=== PATIENT | female | born 1945 | race Caucasian/White ===

== ENCOUNTER → 2017-03-31 | Outpatient (CLI) | payer OTHER, MEDICARE | LOC: FIMAGING 09:21 | PROVIDERS: ATTEND Physician Assistant | DX: M41.9 Scoliosis, unspecified (principal); Z98.1 Arthrodesis status ==

== ENCOUNTER → 2017-05-02 | Outpatient (CLI) | payer OTHER, MEDICARE | LOC: FIMAGING 12:39 | PROVIDERS: ATTEND Physician Assistant Surgical | DX: Z13.820 Encounter for screening for osteoporosis (principal); M81.0 Age-related osteoporosis without current pathological fracture; M51.17 Intervertebral disc disorders with radiculopathy, lumbosacral region; M54.16 Radiculopathy, lumbar region ==

== ENCOUNTER → 2017-10-10 | Outpatient (CLI) | payer OTHER, MEDICARE | LOC: BHFA 10:00 | PROVIDERS: ATTEND Internal Medicine Cardiovascular Disease | DX: I51.7 Cardiomegaly (principal) ==

== ENCOUNTER 2018-06-17 02:39 | Inpatient (IN) | payer OTHER, MEDICARE ==
[2018-06-17] MEDS ORDERED: NS 1,000 ML IV ONE ×2 (02:45→06:52)
[2018-06-17] MEDS ORDERED: METOCLOPRAMIDE 10 MG/2 ML VIAL IVP ONE (02:50)
[2018-06-17 02:58] LABS: PLATELET COUNT 235 10^3/uL (150-400)
[2018-06-17] MEDS ORDERED: IOPAMIDOL (ISOVUE-300) 100 ML BTL ONE (03:00)
[2018-06-17] MEDS ORDERED: LORazepam 2 MG/ML INJ IVP ONE (03:04)
--- NOTE | 2018-06-17 03:24 | EDPHY ---
H & P Stated Complaint: abd pain Time Seen by Provider: 06/17/18 02:44 HPI/ROS: HPI The patient presents with nausea, vomiting, abdominal pain which has been present for the last 2 days and getting progressively worse. The patient is brought in by ambulance from her home in [place]. She does receive Zofran 8 mg 0 DT. Her symptoms have continued. She reports a dull lower abdominal pain which started slowly. She has not had a bowel movement in 2 days. She is vomiting every 30 min. She does have a history of constipation, however this seems worse.. REVIEW OF SYSTEMS 10 systems were reviewed and negative with the exception of the elements mentioned in the history of present illness. PMHx: Status post cholecystectomy, prior orthopedic surgeries Soc Hx: Lives at home independently with her PHYSICAL General Appearance: Alert, no distress Eyes: Pupils equal and round no pallor or injection ENT, Mouth: Mucous membranes moist Respiratory: There are no retractions, lungs are clear to auscultation Cardiovascular: Regular rate and rhythm Gastrointestinal: Abdomen is distended, bowel sounds present, tender in both lower quadrants without rebound or guarding Neurological: A&O, moves all extremities Skin: Warm and dry, no rashes Musculoskeletal: Neck is supple non tender Extremities: symmetrical, full range of motion Psychiatric: Patient is oriented X 3, there is no agitation Source: Patient Exam Limitations: No limitations - Personal History Current Tetanus Diphtheria and Acellular Pertussis (TDAP): Yes - Medical/Surgical History Hx Asthma: No Hx Chronic Respiratory Disease: No Hx Diabetes: No Hx Cardiac Disease: No Hx Renal Disease: No Hx Cirrhosis: No Hx Alcoholism: No Hx HIV/AIDS: No Hx Splenectomy or Spleen Trauma: No Other PMH: spinal fusion. ankle fusion. gallbladder. tka bilat - Social History Smoking Status: Never smoked Constitutional: Initial Vital Signs Temperature (C) 36.5 C 06/17/18 02:43 Heart Rate 102 H 06/17/18 02:43 Respiratory Rate 18 06/17/18 02:43 Blood Pressure 160/105 H 06/17/18 02:43 O2 Sat (%) 92 06/17/18 02:43 O2 Delivery Mode Room Air O2 (L/minute) 2 Allergies/Adverse Reactions: Sulfa (Sulfonamide Antibiotics) Allergy (Severe, Verified 06/17/18 02:43) Hives morphine [Morphine] Allergy (Intermediate, Verified 06/17/18 02:43) Other-Enter Comments hydromorphone HCl [From Dilaudid] Allergy (Verified 06/17/18 02:43) Home Medications: Medication Instructions Recorded Ascorbic Acid [Vitamin C 500 mg 1,000 mg PO DAILY 03/03/14 (*)] Cholecalciferol Vit D3 [Vitamin D3 1,000 units PO DAILY 03/03/14 (*)] Herbals/Supplements -Info Only 1 ea PO DAILY 03/03/14 [place]-3 Fatty Acids [Fish Oil 1000 1,000 mg PO DAILY 03/03/14 mg (*)] Omeprazole [Prilosec 20 mg] 40 mg PO DAILY 03/03/14 Rizatriptan Benzoate [Maxalt 10mg] 10 mg PO ONETIMEPRN PRN 03/03/14 Sertraline HCl [Zoloft 100mg (*)] 50 mg PO DAILY 03/03/14 HYDROcodone/APAP 10/325 [[place] 1 - 2 tab PO Q6 PRN #0 tab 03/12/14 10/325 (*)] oxyCODONE CR [Oxycontin] 10 mg PO TID #0 tab 03/12/14 DULoxetine [Cymbalta 30 MG (*)] 30 mg PO DAILY 11/05/15 Diclofenac Sodium 1% [Voltaren Gel 1 brittaney TP DAILY 11/05/15 (*)] Diclofenac Sodium [Voltaren 75 MG 75 mg PO DAILY 11/05/15 (*)] Ferrous Sulfate [Ferrous Sulf 325 325 mg PO DAILY 11/05/15 MG (*)] Pramipexole Di-HCl [Mirapex] 1 mg PO HS 11/05/15 morphINE SR [Ms Contin/Oramorph 15 15 mg PO BID PRN 11/05/15 mg (*)] Meclizine HCl [Meclizine HCl 25 mg 25 mg PO BID PRN #20 tab 11/06/15 (RX,OTC)] Ondansetron Odt [Zofran Odt 4 mg 4 mg PO Q4 PRN #10 tab 06/17/18 (*)] Medical Decision Making - Diagnostics Imaging Results: CT abdomen pelvis with IV contrast demonstrates moderately distended stomach, multiple mild to moderately distended small bowel loops suggestive of ileus, underlying mild gastroenteritis may be present, there is no evidence of small- bowel obstruction, interpreted by direct Radiology. Differential Diagnosis: This is a 73-year-old female status post cholecystectomy with history of constipation who presents from home brought in by ambulance with progressive lower abdominal pain associated with nausea and vomiting. Here, she is tender in her lower quadrants and appears distended. Differential diagnosis includes constipation, small-bowel obstruction, gastroenteritis, colitis. Patient was given IV fluids, medication for her symptoms. Basic labs were checked and were unremarkable. CT scan was performed which demonstrated an ileus and likely underlying gastroenteritis. After patient received medication she was able to sleep for several hours, however when she woke up she felt generally unwell with ongoing abdominal pain and nausea. She is tachycardic as well with heart rate in the 1 teens. I plan to admit her to the hospital for her ongoing symptoms. I have consulted with the hospitalist patient transportation driver Dr. Alejandra. - Data Points Laboratory Results: Laboratory Results 06/17/18 02:50 06/17/18 02:50 06/17/18 06/17/18 06/17/18 02:56 02:50 02:50 WBC 10.06 10^3/uL H 10^3/uL (3.80-9.50) RBC 5.74 10^6/uL H 10^6/uL (4.18-5.33) Hgb 17.8 g/dL H g/dL (12.6-16.3) POC Hgb 18.7 gm/dL H gm/dL (12.6-16.3) Hct 53.2 % H % (38.0-47.0) POC Hct 55 % H % (38-47) MCV 92.7 fL fL (81.5-99.8) MCH 31.0 pg pg (27.9-34.1) MCHC 33.5 g/dL g/dL (32.4-36.7) RDW 12.9 % % (11.5-15.2) Plt Count 235 10^3/uL 10^3/uL (150-400) MPV 9.6 fL fL (8.7-11.7) Neut % (Auto) 94.2 % H % (39.3-74.2) Lymph % (Auto) 2.6 % L % (15.0-45.0) [place] % (Auto) 2.4 % L % (4.5-13.0) Eos % (Auto) 0.2 % L % (0.6-7.6) Baso % (Auto) 0.3 % % (0.3-1.7) Nucleat RBC Rel Count 0.0 % % (0.0-0.2) Absolute Neuts (auto) 9.48 10^3/uL H 10^3/uL (1.70-6.50) Absolute Lymphs (auto) 0.26 10^3/uL L 10^3/uL (1.00-3.00) Absolute Monos (auto) 0.24 10^3/uL L 10^3/uL (0.30-0.80) Absolute Eos (auto) 0.02 10^3/uL L 10^3/uL (0.03-0.40) Absolute Basos (auto) 0.03 10^3/uL 10^3/uL (0.02-0.10) Absolute Nucleated RBC 0.00 10^3/uL 10^3/uL (0-0.01) Immature Gran % 0.3 % % (0.0-1.1) Immature Gran # 0.03 10^3/uL 10^3/uL (0.00-0.10) RBC/WBC/PLT Morphology TNP Platelet Estimate TNP POC Sodium 143 mEq/L mEq/L (135-145) Sodium 139 mEq/L mEq/L (135-145) POC Potassium 3.6 mEq/L mEq/L (3.3-5.0) Potassium 3.8 mEq/L mEq/L (3.5-5.2) POC Chloride 101 mEq/L mEq/L (97-110) Chloride 104 mEq/L mEq/L (97-110) Carbon Dioxide 26 mEq/l mEq/l (22-31) POC Total CO2 25 mEq/L mEq/L (22-31) Anion Gap 9 mEq/L mEq/L (6-14) POC BUN 27 mg/dL H mg/dL (7-23) BUN 27 mg/dL H mg/dL (7-23) Creatinine 0.6 mg/dL mg/dL (0.6-1.0) POC Creatinine 0.6 mg/dL mg/dL (0.6-1.0) Estimated GFR > 60 Glucose 125 mg/dL H mg/dL (70-100) POC Glucose 126 mg/dL H mg/dL (70-100) Calcium 8.7 mg/dL mg/dL (8.5-10.4) Total Bilirubin 1.0 mg/dL mg/dL (0.1-1.4) Conjugated Bilirubin 0.3 mg/dL mg/dL (0.0-0.5) Unconjugated Bilirubin 0.7 mg/dL mg/dL (0.0-1.1) AST 46 IU/L IU/L (14-46) ALT 64 IU/L H IU/L (9-52) Alkaline Phosphatase 198 IU/L H IU/L (38-126) Total Protein 6.9 g/dL g/dL (6.3-8.2) Albumin 4.1 g/dL g/dL (3.5-5.0) Lipase 43 IU/L IU/L (23-300) Medications Given: Discontinued Medications Diphenhydramine HCl (Benadryl Injection) 25 mg IVP EDNOW ONE Stop: 06/17/18 03:06 Last Admin: 06/17/18 03:12 Dose: 25 mg Hydromorphone HCl (Dilaudid) 0.5 mg IVP EDNOW ONE Stop: 06/17/18 03:36 Last Admin: 06/17/18 03:38 Dose: 0.5 mg Sodium Chloride (Ns) 1,000 mls @ 0 mls/hr IV EDNOW ONE; Wide Open PRN Reason: Protocol Stop: 06/17/18 02:46 Last Admin: 06/17/18 02:48 Dose: 1,000 mls Lorazepam (Ativan Injection) 0.5 mg IVP EDNOW ONE Stop: 06/17/18 03:05 Last Admin: 06/17/18 03:12 Dose: 0.5 mg Metoclopramide HCl (Reglan Injection) 10 mg IVP EDNOW ONE Stop: 06/17/18 02:51 Last Admin: 06/17/18 02:53 Dose: 10 mg Point of Care Test Results: Chemistry 06/17/18 02:56 POC Sodium 143 mEq/L mEq/L (135-145) POC Potassium 3.6 mEq/L mEq/L (3.3-5.0) POC Chloride 101 mEq/L mEq/L (97-110) POC Total CO2 25 mEq/L mEq/L (22-31) POC BUN 27 mg/dL H mg/dL (7-23) POC Creatinine 0.6 mg/dL mg/dL (0.6-1.0) POC Glucose 126 mg/dL H mg/dL (70-100) ISTAT H&H 06/17/18 02:56 POC Hgb 18.7 gm/dL H gm/dL (12.6-16.3) POC Hct 55 % H % (38-47) Departure - Departure Disposition: [facility] Inpatient Acute Clinical Impression: Ileus Nausea & vomiting Qualifiers: Vomiting type: unspecified Vomiting Intractability: non-intractable Qualified Code(s): R11.2 - Nausea with vomiting, unspecified Condition: Fair Instructions: Acute Nausea and Vomiting (ED), Ileus (ED) Referrals: Alvin Elliott MD [Primary Care Provider] - As per Instructions Prescriptions: Ondansetron Odt [Zofran Odt 4 mg (*)] 4 mg PO Q4 PRN #10 tab PRN Reason: Nausea/Vomiting, Can'T Take Po
[2018-06-17] MEDS ORDERED: HYDROmorphONE/DILAUDID 2 MG/ML INJ IVP ONE (03:35)
[2018-06-17] MEDS ORDERED: ONDANSETRON 4MG PREPACK#2 BTL TAKEHOME ONE (06:13)
[2018-06-17] MEDS ORDERED: ONDANSETRON 4 MG/2 ML VIAL IVP PRN (08:26)
[2018-06-17] MEDS ORDERED: ACETAMINOPHEN 325 MG TAB PO PRN (08:26)
[2018-06-17] MEDS ORDERED: ONDANSETRON DISINTEGRATING 4 MG TAB PO PRN (08:26)
[2018-06-17] MEDS ORDERED: PROMETHAZINE HCL 25 MG/ML INJ IVP PRN (08:26)
--- NOTE | 2018-06-17 08:29 | PDGENHP ---
History and Physical - Chief Complaint vomiting - History of Present Illness 73 yo female presents to ED with vomiting and abdominal pain. Her symptoms started yesterday with abdominal discomfort. She began vomiting last night and reports continuous vomiting. No hematemesis or coffee ground emesis. No fevers or chills. Daughter had recent GI illness with diarrhea and vomiting and is still a bit ill with this. No obvious food exposures. No recent travel. In the ED, CT showed small bowel inflammation. She is admitted for further management of presumed gastroenteritis. History Information - Allergies/Home Medication List Allergies/Adverse Reactions: Sulfa (Sulfonamide Antibiotics) Allergy (Severe, Verified 06/17/18 02:43) Hives morphine [Morphine] Allergy (Intermediate, Verified 06/17/18 02:43) Other-Enter Comments Home Medications: Cholecalciferol Vit D3 [Vitamin D3 (*)] 1,000 units PO DAILY 03/03/14 [Last Taken Unknown] Herbals/Supplements -Info Only 1 ea PO DAILY 03/03/14 [Last Taken Unknown] Omeprazole [Prilosec 20 mg] 40 mg PO DAILY 03/03/14 [Last Taken 11/05/15 07:00] Diclofenac Sodium [Voltaren 75 MG (*)] 75 mg PO BID 11/05/15 [Last Taken ] Ferrous Sulfate [Ferrous Sulf 325 MG (*)] 325 mg PO DAILY 11/05/15 [Last Taken Unknown] Pramipexole Di-HCl [Mirapex] 1 - 1.5 mg PO HS 11/05/15 [Last Taken 11/04/15] Aspirin [Aspirin 81mg (*)] 81 mg PO DAILY 06/17/18 [Last Taken Unknown] Calcium Carbonate [[place] Calcium 500 mg (*)] 500 mg PO DAILY 06/17/18 [ Last Taken Unknown] DULoxetine [Cymbalta 60 MG (*)] 60 mg PO DAILY 06/17/18 [Last Taken Unknown] Gabapentin [Neurontin 300 MG (*)] 900 mg PO HS 06/17/18 [Last Taken Unknown] Hydrochlorothiazide [HCTZ (*)] 25 mg PO DAILY 06/17/18 [Last Taken Unknown] I have personally reviewed and updated: family history, medical history, social history, surgical history - Past Medical History Additional medical history: restless legs. gerd - Surgical History Reports: cholecystectomy Additional surgical history: spinal fusion. ankle fusion. b/l TKA - Family History Positive for: non-pertinent - Social History Smoking Status: Never smoked Alcohol Use: None Drug Use: None Additional social history: Lives independently. , at bedside. Review of Systems Review of Systems: ROS: 10pt was reviewed & negative except for what was stated in HPI & below Physical Exam Physical Exam: Temp Pulse Resp BP Pulse Ox 37.7 C 94 18 130/62 H 97 06/17/18 07:53 06/17/18 07:53 06/17/18 07:53 06/17/18 07:53 06/17/18 07:53 O2 (L/minute) 4 Constitutional: no apparent distress Eyes: PERRL Ears, Nose, Mouth, Throat: moist mucous membranes Cardiovascular: regular rate and rhythym Respiratory: no respiratory distress, clear to auscultation Gastrointestinal: normoactive bowel sounds, other (soft, nd, mild diffuse TTP without r/r/g, +BS) Skin: warm Musculoskeletal: full muscle strength Neurologic: AAOx3 Psychiatric: interacting appropriately Lab Data & Imaging Review 06/17/18 02:50 06/17/18 02:50 WBC 10.06 10^3/uL (3.80-9.50) H 06/17/18 02:50 RBC 5.74 10^6/uL (4.18-5.33) H 06/17/18 02:50 Hgb 17.8 g/dL (12.6-16.3) H 06/17/18 02:50 POC Hgb 18.7 gm/dL (12.6-16.3) H 06/17/18 02:56 Hct 53.2 % (38.0-47.0) H 06/17/18 02:50 POC Hct 55 % (38-47) H 06/17/18 02:56 MCV 92.7 fL (81.5-99.8) 06/17/18 02:50 MCH 31.0 pg (27.9-34.1) 06/17/18 02:50 MCHC 33.5 g/dL (32.4-36.7) 06/17/18 02:50 RDW 12.9 % (11.5-15.2) 06/17/18 02:50 Plt Count 235 10^3/uL (150-400) 06/17/18 02:50 MPV 9.6 fL (8.7-11.7) 06/17/18 02:50 Neut % (Auto) 94.2 % (39.3-74.2) H 06/17/18 02:50 Lymph % (Auto) 2.6 % (15.0-45.0) L 06/17/18 02:50 [place] % (Auto) 2.4 % (4.5-13.0) L 06/17/18 02:50 Eos % (Auto) 0.2 % (0.6-7.6) L 06/17/18 02:50 Baso % (Auto) 0.3 % (0.3-1.7) 06/17/18 02:50 Nucleat RBC Rel Count 0.0 % (0.0-0.2) 06/17/18 02:50 Absolute Neuts (auto) 9.48 10^3/uL (1.70-6.50) H 06/17/18 02:50 Absolute Lymphs (auto) 0.26 10^3/uL (1.00-3.00) L 06/17/18 02:50 Absolute Monos (auto) 0.24 10^3/uL (0.30-0.80) L 06/17/18 02:50 Absolute Eos (auto) 0.02 10^3/uL (0.03-0.40) L 06/17/18 02:50 Absolute Basos (auto) 0.03 10^3/uL (0.02-0.10) 06/17/18 02:50 Absolute Nucleated RBC 0.00 10^3/uL (0-0.01) 06/17/18 02:50 Immature Gran % 0.3 % (0.0-1.1) 06/17/18 02:50 Immature Gran # 0.03 10^3/uL (0.00-0.10) 06/17/18 02:50 RBC/WBC/PLT Morphology TNP 06/17/18 02:50 Platelet Estimate TNP 06/17/18 02:50 POC Sodium 143 mEq/L (135-145) 06/17/18 02:56 Sodium 139 mEq/L (135-145) 06/17/18 02:50 POC Potassium 3.6 mEq/L (3.3-5.0) 06/17/18 02:56 Potassium 3.8 mEq/L (3.5-5.2) 06/17/18 02:50 POC Chloride 101 mEq/L (97-110) 06/17/18 02:56 Chloride 104 mEq/L (97-110) 06/17/18 02:50 Carbon Dioxide 26 mEq/l (22-31) 06/17/18 02:50 POC Total CO2 25 mEq/L (22-31) 06/17/18 02:56 Anion Gap 9 mEq/L (6-14) 06/17/18 02:50 POC BUN 27 mg/dL (7-23) H 06/17/18 02:56 BUN 27 mg/dL (7-23) H 06/17/18 02:50 Creatinine 0.6 mg/dL (0.6-1.0) 06/17/18 02:50 POC Creatinine 0.6 mg/dL (0.6-1.0) 06/17/18 02:56 Estimated GFR > 60 06/17/18 02:50 Glucose 125 mg/dL (70-100) H 06/17/18 02:50 POC Glucose 126 mg/dL (70-100) H 06/17/18 02:56 Calcium 8.7 mg/dL (8.5-10.4) 06/17/18 02:50 Total Bilirubin 1.0 mg/dL (0.1-1.4) 06/17/18 02:50 Conjugated Bilirubin 0.3 mg/dL (0.0-0.5) 06/17/18 02:50 Unconjugated Bilirubin 0.7 mg/dL (0.0-1.1) 06/17/18 02:50 AST 46 IU/L (14-46) 06/17/18 02:50 ALT 64 IU/L (9-52) H 06/17/18 02:50 Alkaline Phosphatase 198 IU/L (38-126) H 06/17/18 02:50 Total Protein 6.9 g/dL (6.3-8.2) 06/17/18 02:50 Albumin 4.1 g/dL (3.5-5.0) 06/17/18 02:50 Lipase 43 IU/L (23-300) 06/17/18 02:50 Assessment & Plan Assessment: Nausea and vomiting - suspect viral gastroenteritis noting daughter with similar illness. No diarrhea -check GI PCR if diarrhea occurs -IVF's, anti-emetics, supportive care Ileus - likely related to above -bowel rest RLS - cont mirapex GERD - cont PPI Full code Dispo - admit to inpt, anticipate >48 hrs hospitalization for ongoing management of N/V and ileus.
[2018-06-17] MEDS: NS W/ 20 KCl/L 1,000 ML IV SCH ×2 (09:28→09:49)
[2018-06-17] MEDS ORDERED: HYDROmorphONE/DILAUDID 1 MG/ML INJ IVP PRN (09:28)
[2018-06-17] MEDS: ENOXAPARIN 40 MG/0.4 ML SYR SC SCH (11:45)
[2018-06-17] MEDS: HYDROCODONE/APAP 10/325 TAB PO PRN ×2 (13:23→20:02)
[2018-06-17] MEDS ORDERED: PRAMIPEXOLE 1 MG TAB PO SCH (21:00)
[2018-06-17] MEDS ORDERED: GABAPENTIN 300 MG CAP PO SCH (21:00)
[2018-06-17] MEDS ORDERED: PRAMIPEXOLE DI HCL 1 MG PO SCH (21:00)
--- NOTE | 2018-06-17 21:13 | PDMN ---
Medical Necessity Medical necessity: MCG M200 Ileus, 2 days: 73 yo w/ vomiting and abd pain. Further eval reveals ileus likely r/t gastroenteritis. IVF, antiemetics, supportive care. Admit to inpt, anticipate >48 hrs hospitalization for ongoing management of N/V and ileus.
[2018-06-18] MEDS: HYDROCODONE/APAP 10/325 TAB PO PRN (04:13)
[2018-06-18 05:53] LABS: PLATELET COUNT 139 10^3/uL (150-400)
[2018-06-18] MEDS ORDERED: PANTOPRAZOLE SODIUM 40 MG TAB PO SCH (09:00)
[2018-06-18] MEDS ORDERED: DULoxetine 60 MG CAP PO SCH (09:00)
[2018-06-18] MEDS ORDERED: ASPIRIN 81 MG CHEWABLE TAB PO SCH (09:00)
[2018-06-18] MEDS: ENOXAPARIN 40 MG/0.4 ML SYR SC SCH (09:36)
[2018-06-18 12:08] VITALS: BP 143/87
--- NOTE | 2018-06-18 14:35 | HOSPPROG ---
Hospitalist Progress Note Assessment/Plan: 73 yo F w gastroenteritis resolved home today quicker than expected recovery see dc summary > 30 minutes Subjective: abd film improved. feels much better. no diarrhea Objective: Vital Signs Temp Pulse Resp BP Pulse Ox 36.6 C 78 16 143/87 H 92 06/18/18 12:00 06/18/18 12:00 06/18/18 12:00 06/18/18 12:00 06/18/18 12:00 Laboratory Results 06/18/18 05:12 06/18/18 05:12 06/17/18 06/18/18 06/19/18 05:59 05:59 05:59 Intake Total 300 Output Total 1050 Balance -750 - Physical Exam Constitutional: no apparent distress, appears nourished Eyes: PERRL, anicteric sclera Ears, Nose, Mouth, Throat: moist mucous membranes, hearing normal Cardiovascular: regular rate and rhythym, no murmur, rub, or gallop Respiratory: no respiratory distress, no rales or rhonchi Gastrointestinal: normoactive bowel sounds, soft, non-tender abdomen Genitourinary: No chung in urethra Skin: warm, normal color Musculoskeletal: full muscle strength Neurologic: AAOx3 ICD10 Worksheet Patient Problems: Problems Problem Status Onset Ileus Acute Nausea & vomiting Acute Low back pain Acute Lumbosacral stenosis Acute Vertigo Acute
--- NOTE | 2018-06-18 14:53 | GDS ---
[f rep st] DISCHARGE SUMMARY DISCHARGE DIAGNOSES: 1. Likely viral gastroenteritis. 2. Ileus. 3. Migraines. 4. Hypertension. 5. Restless legs. Please see admission history and physical by Dr. Leah Robertson. The patient presented with vomiting. Her daughter had a recent viral gastroenteritis. She had an abdominal CT showing dilated loops of bowel, but otherwise unremarkable. She improved symptomatically overnight with supportive care. Tod ay, an abdominal film showed resolution of her ileus. She is discharged home. I did give her a pres cription for [place] sent to her pharmacy. Greater than 30 minutes on this. /[id number]/MODL
== END 2018-06-18 15:30 | disposition home or self-care (01) | DRG 392 ==
LOC: EDUNIT# → EDBD → F3E 07:45 → OBSVTOIN 14:02
PROVIDERS: ADMIT Hospitalist; ATTEND Family Medicine
DX: A08.4 Viral intestinal infection, unspecified (principal); K56.7 Ileus, unspecified; E86.9 Volume depletion, unspecified; G43.909 Migraine, unspecified, not intractable, without status migrainosus; I10 Essential (primary) hypertension; G25.81 Restless legs syndrome; K21.9 Gastro-esophageal reflux disease without esophagitis; Z96.653 Presence of artificial knee joint, bilateral
CPT/HCPCS: 82435-PO; 82565-PO; 82947-PO; 84132-PO; 84295-PO; 84520-PO; 85014-ER; 96374; J1170; J1200; J1650; J2060; J2765; Q9967